=== PATIENT | female | born 1995 | race Two or more races ===

== ENCOUNTER 2017-02-20 13:59 | Emergency (ER) | payer MEDICAID ==
[2017-02-20 14:46] LABS: COLOR YELLOW; LEUKOCYTE ESTERASE,URINE NEGATIVE (NEGATIVE); NITRITE,URINE NEGATIVE (NEGATIVE); PH,URINE 5.5 (5.0-7.5)
--- NOTE | 2017-02-20 14:53 | EDPHY ---
H & P Stated Complaint: gen. all over body weakness, paranoia, Time Seen by Provider: 02/20/17 14:16 HPI/ROS: CHIEF COMPLAINT: Lightheaded, dizzy History by patient HISTORY OF PRESENT ILLNESS: 21-year-old woman presents complaining of feeling lightheaded and dizzy and feeling somewhat out of her body, as well as overall general fatigue and tiredness. She feels very sensitive to sound and l loud noises and feels easily startled found also somewhat paranoid. She says that she did not want to take the bus home or be around other people. 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 When she woke up this morning she was well but then felt the onset of a migraine headache so she took some Excedrin and she never developed a headache. She does not have a headache now. She denies any nausea or vomiting. She has had migraines in the past which are usually associated with nausea and vomiting but no aura. She also has a history of anxiety and panic attacks but she says those are different than what she was feeling today. They are usually associated with hyperventilating and triggered. She has seen a counselor and a psychiatrist in the past. Her last menses was 2 weeks ago. She uses an IUD. She has had some dysuria this morning which she is associated with having sexual intercourse last night. She denies any abdominal pain, chest pain, back pain, urinary urgency or frequency. She has a history of asthma but is not on oral steroids and never has been. She does not smoke. She uses at a ball marijuana occasionally but her last use was 4 days ago. She denies any other street drug use. She drinks occasional alcohol but has not had any recently. REVIEW OF SYSTEMS: As in HPI, and all other systems reviewed and are negative Source: Patient - Personal History LMP (Females 10-55): 22-28 Days Ago Current Tetanus Diphtheria and Acellular Pertussis (TDAP): No - Medical/Surgical History Hx Asthma: Yes Hx Chronic Respiratory Disease: No Hx Diabetes: No Hx Cardiac Disease: No Hx Renal Disease: No Hx Cirrhosis: No Hx Alcoholism: No Hx HIV/AIDS: No Hx Splenectomy or Spleen Trauma: No Other PMH: asthma, anxiety - Family History Significant Family History: No pertinent family hx - Social History Smoking Status: Never smoked - Physical Exam Exam: General Appearance: Alert, well-appearing. Eyes: Pupils equal and round no pallor or injection. ENT, Mouth: Mucous membranes moist. Respiratory: Normal, effort, lungs are clear to auscultation. No wheezes, rales or rhonchi. Cardiovascular: Regular rate and rhythm. S1, S2 Gastrointestinal: Abdomen is soft and nontender, no masses, bowel sounds normal. Back: No CVA tenderness, no bony tenderness Neurological: Awake, alert and oriented x 3, cranial nerves 2-12 intact, no pronator drift, normal gait Skin: Warm and dry, no rashes. Musculoskeletal: Neck is supple nontender. No deformities. Extremitie:s full range of motion, no edema Psychiatric: Patient has normal affect, there is no agitation. Constitutional: Initial Vital Signs Heart Rate 75 02/20/17 14:12 Respiratory Rate 14 02/20/17 14:12 Blood Pressure 92/72 L 02/20/17 14:12 O2 Sat (%) 99 02/20/17 14:12 O2 Delivery Mode Room Air Allergies/Adverse Reactions: Penicillins Allergy (Unverified 02/20/17 14:11) tetanus and diphtheria toxoids [tetanus & diphtheria toxoids] Allergy ( Unverified 02/20/17 14:11) Home Medications: Medication Instructions Recorded Advair 100/50 (RX) 11/14/15 Albuterol 11/14/15 Medical Decision Making ED Course/Re-evaluation: 21-year-old woman presents with symptoms of out-of-body feeling, paranoia, sound sensitivity and anxiousness. Exam is unremarkable. Patient is not and there is no evidence of urinary tract infection. Patient is denying substance abuse. Her symptoms are currently resolved. I suspect this is either an anxiety reaction or an atypical migraine. I am recommending she follow up with primary care physician if these kinds of symptoms recur. - Data Points Laboratory Results: 02/20/17 02/20/17 14:43 14:43 Urine Color Pending Urine Appearance Pending Urine pH Pending Ur Specific [place] Pending Urine Protein Pending Urine Ketones Pending Urine Blood Pending Urine Nitrate Pending Urine Bilirubin Pending Urine Urobilinogen Pending Ur Leukocyte Esterase Pending Urine RBC Pending Urine WBC Pending Ur Epithelial Cells Pending Urine Glucose Pending Urine Test Pending Departure - Departure Disposition: Home, Routine, Self-Care Clinical Impression: Anxiety Condition: Good Instructions: Anxiety (ED) Additional Instructions: You were seen by Dr. Nydia Cline today. The cause of her symptoms today are unclear but may have been related to anxiety or any typical migraine. Please follow-up with your primary care physician. Return for any worsening or new concerns. Referrals: [facility],. [Primary Care Provider] - As per Instructions
[2017-02-20 15:17] VITALS: BP 107/71; PULSE 76; RESP 16; TEMP 98.1; O2SAT 98
[2017-02-20 15:43] LABS: MUCUS 3+ /lpf (NONE-1+)
[2017-02-20 15:45] LABS: BACTERIA 1+ /hpf (NONE SEEN); RBC,URINE OCCASIONAL /hpf (0-3)
== END 2017-02-20 15:10 | disposition home or self-care (01) ==
LOC: CED 13:59
DX: F41.9 Anxiety disorder, unspecified (principal); J45.909 Unspecified asthma, uncomplicated
CPT/HCPCS: 81003-PO; 81015-PO; 81025-PO